=== PATIENT | male | born 1995 | race African-American/Black ===

== ENCOUNTER 2017-04-24 14:34 | Emergency (ER) | payer MEDICAID ==
[2017-04-24 14:35] VITALS: BP 122/75; PULSE 90; RESP 12; TEMP 98.5; O2SAT 98
== END 2017-04-24 14:59 | disposition left against medical advice (07) ==
LOC: NED 14:34
DX: R10.9 Unspecified abdominal pain (principal)
CPT/HCPCS: 99281